=== PATIENT | male | born 1950 | race Caucasian/White ===

== ENCOUNTER 2022-07-08 15:06 | Emergency (ER) | payer OTHER ==
[2022-07-08] VITALS (10 sets, daily range): BP systolic 120–154; BP diastolic 80–98
[~2022-07-08] VITALS: Ht 182.9 cm; Wt 84.0 kg
[2022-07-08] MEDS ORDERED: [UNRECOGNIZED DRUG - OTHER] (15:24)
[2022-07-08] MEDS ORDERED: OMEPRAZOLE20 MG PO (15:24)
[2022-07-08] MEDS ORDERED: VENLAFAXINE HCL75 M1 PO (15:25)
[2022-07-08] MEDS ORDERED: LOSARTAN POTASS25 MG PO (15:25)
[2022-07-08] MEDS ORDERED: CARVEDILOL3.125 MG PO (15:25)
[2022-07-08 15:51] LABS: BASO% 0.6 % (0-3); EOS% 1.3 % (0-8); HEMATOCRIT 40.8 % (39.0-50.0); HEMOGLOBIN 13.8 g/dl (14.0-18.0); IMMATURE GRANULOCYTES 0.1 % (0.0-5.0); LYMPH% 37.4 % (15-41); MEAN CORPUSCULAR HGB 34.2 pG CALC (26.0-32.0); MEAN CORPUSCULAR HGB CONC 33.8 g/dL CAL (32.0-36.0); MONO% 10.9 % (2-13); NEUT# 3.42 thou/uL (1.82-7.42); NEUT% 49.7 % (42-76); RED BLOOD COUNT 4.04 mill/uL (4.70-6.10); RED CELL DISTRI WIDTH 12.9 % (11.5-15.5)
[2022-07-08 16:02] LABS: ALBUMIN 3.7 g/dL (3.2-5.0); ALKALINE PHOSPHATASE 95 u/l (38-126); ANION GAP 9 (6-22 (CALC)); BILIRUBIN, TOTAL 0.4 mg/dL (0.0-1.4); BUN 10 mg/dL (8-23); BUN/CREATININE RATIO 12 (12-20 (CALC)); C-REACTIVE PROTEIN 0.8 mg/dL (0-0.9); CARBON DIOXIDE 25 mmol/l (22-30); CHLORIDE 104 mmol/l (95-108); CREATININE 0.8 mg/dL (0.7-1.3); GFR FOR AFR.AMER. > 60 ML/MIN (>=60 (CALC)); GFR OTHER RACES > 60 ML/MIN (>=60 (CALC)); SGOT/AST 29 u/l (19-48); SODIUM 133 mmol/l (137-146); TOTAL PROTEIN 6.8 g/dL (6.3-8.2)
[2022-07-08] MEDS ORDERED: VIBRAMYCIN100 M2 PO (17:19)
== END 2022-07-08 17:35 | disposition home or self-care (01) | DRG 541 ==
LOC: ED 15:06
PROVIDERS: Nurse Practitioner
DX: M86.8X7 Other osteomyelitis, ankle and foot (principal); L03.031 Cellulitis of right toe; L97.519 Non-pressure chronic ulcer of other part of right foot with unspecified severity

== ENCOUNTER 2022-07-28 18:33 | Emergency (ER) | payer OTHER, MEDICARE ==
[~2022-07-28] VITALS: Ht 182.9 cm; Wt 79.2 kg
[2022-07-28] VITALS (11 sets, daily range): BP systolic 81–126; BP diastolic 58–77
[~2022-07-28 18:33] MED LIST: CARVEDILOL3.125 MG PO; LOSARTAN POTASS25 MG PO; OMEPRAZOLE20 MG PO; VENLAFAXINE HCL75 M1 PO; VIBRAMYCIN100 M2 PO; [UNRECOGNIZED DRUG - OTHER]
[2022-07-28 20:29] LABS: BASO% 0.3 % (0-3); EOS% 0.7 % (0-8); HEMOGLOBIN 14.1 g/dl (14.0-18.0); IMMATURE GRANULOCYTES 0.2 % (0.0-5.0); MONO% 12.2 % (2-13); NEUT# 5.34 thou/uL (1.82-7.42); NEUT% 60.6 % (42-76); RED BLOOD COUNT 4.27 mill/uL (4.70-6.10); RED CELL DISTRI WIDTH 13.2 % (11.5-15.5)
[2022-07-28 20:42] LABS: ALBUMIN 4.1 g/dL (3.2-5.0); ALKALINE PHOSPHATASE 94 u/l (38-126); ANION GAP 10 (6-22 (CALC)); BILIRUBIN, TOTAL 0.3 mg/dL (0.2-1.3); BUN 8 mg/dL (8-23); BUN/CREATININE RATIO 11 (12-20 (CALC)); CARBON DIOXIDE 24 mmol/l (22-30); CHLORIDE 100 mmol/l (95-108); CREATININE 0.7 mg/dL (0.7-1.3); GFR FOR AFR.AMER. > 60 ML/MIN (>=60 (CALC)); GFR OTHER RACES > 60 ML/MIN (>=60 (CALC)); POTASSIUM 3.8 mmol/l (3.5-5.1); SGOT/AST 30 u/l (19-48); SODIUM 131 mmol/l (137-146); TOTAL PROTEIN 7.3 g/dL (6.3-8.2)
[2022-07-28] MEDS ORDERED: MIRALAX17 GM PO (22:30)
[2022-07-28] MEDS ORDERED: LORTAB 1010 MG PO (22:30)
== END 2022-07-28 22:51 | disposition home or self-care (01) | DRG 206 ==
LOC: ED 18:33
PROVIDERS: Nurse Practitioner
DX: S22.31XA Fracture of one rib, right side, initial encounter for closed fracture (principal); J93.9 Pneumothorax, unspecified; W01.0XXA Fall on same level from slipping, tripping and stumbling without subsequent striking against object, initial encounter
CPT/HCPCS: Q9967

== ENCOUNTER 2022-07-30 19:06 | Emergency (ER) | payer OTHER, MEDICARE ==
[~2022-07-30] VITALS: Ht 182.9 cm; Wt 81.2 kg
[~2022-07-30 19:06] MED LIST changes: +LORTAB 1010 MG PO; +MIRALAX17 GM PO
[2022-07-30 23:30] VITALS: BP 136/83
== END 2022-07-30 23:30 | disposition home or self-care (01) | DRG 204 ==
LOC: ED 19:06
DX: R07.81 Pleurodynia (principal); J93.9 Pneumothorax, unspecified; F17.200 Nicotine dependence, unspecified, uncomplicated

== ENCOUNTER 2022-08-02 20:06 | Emergency (ER) | payer OTHER, MEDICARE | END 2022-08-02 20:45 | disposition left against medical advice (07) | DRG 951 | LOC: ED 20:06 → LWOBS 20:45 | DX: Z53.21 Procedure and treatment not carried out due to patient leaving prior to being seen by health care provider (principal) ==